=== PATIENT | female | born 1990 | race Caucasian/White ===

== ENCOUNTER 2017-06-29 16:24 | Emergency (ER) | payer OTHER ==
--- NOTE | 2017-06-29 19:08 | RAD ---
HISTORY: Mid abdominal cramping. Gestational age by last menstrual period is uncertain measured to be 11 weeks and 3 days COMPARISONS: None TECHNIQUE: Multiple transverse and longitudinal ultrasound images were obtained of the pelvis using grayscale, color flow, spectral and M-mode sonographic imaging. FINDINGS: UTERUS: The uterus is normal in shape, size, contour, and echotexture. GESTATION: There is a single live intrauterine gestation. The crown-rump length measures 4.3 cm yielding a gestational age of 11 weeks and 1 day. The mean gestational sac diameter measures 5.7 centimeters yielding a gestational age of 11 weeks and 1 day. cardiac motion is detected at a rate of 160 beats per minute. CUL-DE-SAC: There is no free fluid within the cul-de-sac. RIGHT OVARY: The right ovary measures 3.6 x 2.1 x 3.0 cm. LEFT OVARY: The left ovary measures 3.8 x 2.0 x 2.1 cm. IMPRESSION: Normal-appearing single live intrauterine gestation with a crown-rump length yielding a gestational age of 11 weeks and 1 day.
[2017-06-29 19:47] LABS: ABS Basophils 0.1 10^3/ul (0-0.2); ABS Eosinophils 0.1 10^3/ul (0-0.6); ABS Monocytes 0.7 10^3/ul (0-0.8); ABS Nucleated RBC 0 10^3/ul; Eosinophil % 0.9 % (0-6); Hematocrit 38 % (35-47); Hemoglobin 12.8 g/dl (12.0-16.0); Lymphocyte % 18.5 % (25-47); Mean Corpuscular HGB Conc 34 g/dl (31-36); Mean Corpuscular Hemoglobin 31 pg (27-31); Mean Corpuscular Volume 92 fL (80-97); Mean Platelet Volume 9 um3 (7.4-10.4); Nucleated Red Blood Cells % 0; Platelet Count 249 10^3/ul (150-450); Red Blood Count 4.13 10^6/ul (4.0-5.4); Red Cell Distribution Width 13 % (10.5-15); White Blood Count 10.9 10^3/ul (3.5-10.8)
[2017-06-29 22:24] VITALS: BP 138/71
--- NOTE | 2017-07-02 15:57 | ED ---
Elen Chao Gabriel, scribed for Ramone Griffin MD on 06/29/17 at 2215 . - HPI Summary HPI Summary: This patient is a 26 year old F presenting to [facility] with a chief complaint of ABD pain that began last night. Patient was worried she had a miscarriage and has had a miscarriage in the past. The patient rates the pain 6/10 in severity. Patient reports ABD cramping and nausea. Patient denies vaginal bleeding, v/d, and dysuria. Ab3. Patient has history of UTI s with . - History of Current Complaint Chief Complaint: EDAbdPain Stated Complaint: ABD PAIN, Time Seen by Provider: 06/29/17 21:53 Hx Obtained From: Patient Chief Complaint: Concern for Demise, Pain Timing: Constant Severity: Moderate Current Severity: Moderate Pain Intensity: 6 Location of Pain: Diffuse Character: Cramping Associated Signs and Symptoms: Positive: Negative - vaginal bleeding, v/d, and dysuria., Other: - ABD cramping and nausea - Assessment Hx Now: Yes - Allergies/Home Medications Allergies/Adverse Reactions: Allergies Allergy/AdvReac Type Severity Reaction Status Date / Time No Known Allergies Allergy Verified 11/27/14 12:47 PMH/Surg Hx/FS Hx/Imm Hx Endocrine/Hematology History: Denies: Hx Anticoagulant Therapy, Hx Diabetes Respiratory History: Denies: Hx Chronic Obstructive Pulmonary Disease (COPD), Hx Pulmonary Embolism GI History: Denies: Hx Gastroesophageal Reflux Disease Neurological History: Denies: Hx Dementia, Hx Seizures Psychiatric History: Denies: Hx Eating Disorder, Hx of Violent Episodes Against Others - Surgical History Surgery Procedure, Year, and Place: 2008, FX JAW - WIRED - Immunization History Date of Tetanus Vaccine: PT STATES UNSURE Infectious Disease History: No Infectious Disease History: Denies: Hx Clostridium Difficile, Hx Hepatitis, Hx Human Immunodeficiency Virus (HIV), Hx of Known/Suspected MRSA, Hx Shingles, Hx Tuberculosis, Hx Known/ Suspected VRE, Hx Known/Suspected VRSA, History Other Infectious Disease, Traveled Outside the [place] in Last 30 Days - Family History Known Family History: Negative: Renal Disease, Respiratory Disease, Seizure Disorder - Social History Alcohol Use: Rare Substance Use Type: Reports: None Smoking Status (MU): Never Smoked Tobacco Review of Systems Negative: Fever, Chills Negative: Erythema Negative: Sore Throat Negative: Chest Pain Negative: Shortness Of Breath, Cough Positive: Abdominal Pain, Nausea, Other - ABD cramping . Negative: Vomiting, Diarrhea Genitourinary: Negative - vaginal bleeding Negative: dysuria, hematuria Negative: Myalgia, Edema Negative: Rash Neurological: Negative - Dizziness All Other Systems Reviewed And Are Negative: Yes Physical Exam - Summary Physical Exam Summary: Constitutional: Well-developed, Well-nourished, Alert. (-) Distressed Skin: Warm, Dry HENT: Normocephalic; Atraumatic Eyes: Conjunctiva normal Neck: Musculoskeletal ROM normal neck. (-) JVD, (-) Stridor, (-) Tracheal deviation Cardio: Rhythm regular, rate normal, Heart sounds normal; Intact distal pulses; The pedal pulses are 2+ and symmetric. Radial pulses are 2+ and symmetric. (-) Murmur Pulmonary/Chest wall: Effort normal. (-) Respiratory distress, (-) Wheezes, (-) Rales Abd: Soft, (-) Tenderness, (-) Distension, (-) Guarding, (-) Rebound Musculoskeletal: (-) Edema Lymph: (-) Cervical adenopathy Neuro: Alert, Oriented x3 Psych: Mood and affect Normal - Physical Exam Triage Information Reviewed: Yes Vital Signs Reviewed: Yes Diagnostics - Vital Signs Vital Signs Temp Pulse Resp BP Pulse Ox 06/29/17 21:52 98.3 F 70 71 121/55 99 06/29/17 19:40 98 F 149/73 99 06/29/17 16:31 98.2 F 75 16 143/70 100 - Laboratory Lab Results: Lab Results 06/29/17 06/29/17 Range/Units 19:37 19:37 WBC 10.9 H (3.5-10.8) 10^3/ul RBC 4.13 (4.0-5.4) 10^6/ul Hgb 12.8 (12.0-16.0) g/dl Hct 38 (35-47) % MCV 92 (80-97) fL MCH 31 (27-31) pg MCHC 34 (31-36) g/dl RDW 13 (10.5-15) % Plt Count 249 (150-450) 10^3/ul MPV 9 (7.4-10.4) um3 Neut % (Auto) 73.1 (38-83) % Lymph % (Auto) 18.5 L (25-47) % [place] % (Auto) 6.8 (1-9) % Eos % (Auto) 0.9 (0-6) % Baso % (Auto) 0.7 (0-2) % Absolute Neuts (auto) 8.0 H (1.5-7.7) 10^3/ul Absolute Lymphs (auto) 2.0 (1.0-4.8) 10^3/ul Absolute Monos (auto) 0.7 (0-0.8) 10^3/ul Absolute Eos (auto) 0.1 (0-0.6) 10^3/ul Absolute Basos (auto) 0.1 (0-0.2) 10^3/ul Absolute Nucleated RBC 0 10^3/ul Nucleated RBC % 0 Sodium 135 (133-145) mmol/L Potassium 3.8 (3.5-5.0) mmol/L Chloride 104 (101-111) mmol/L Carbon Dioxide 26 (22-32) mmol/L Anion Gap 5 (2-11) mmol/L BUN 9 (6-24) mg/dL Creatinine 0.47 L (0.51-0.95) mg/dL Est GFR ( Amer) 204.4 (>60) Est GFR (Non-Af Amer) 159.0 (>60) BUN/Creatinine Ratio 19.1 (8-20) Glucose 90 (70-100) mg/dL Calcium 9.3 (8.6-10.3) mg/dL Total Bilirubin 0.20 (0.2-1.0) mg/dL AST 13 (13-39) U/L ALT 12 (7-52) U/L Alkaline Phosphatase 42 (34-104) U/L Total Protein 7.0 (6.4-8.9) g/dL Albumin 3.7 (3.2-5.2) g/dL Globulin 3.3 (2-4) g/dL Albumin/Globulin Ratio 1.1 (1-3) Lipase 20 (11.0-82.0) U/L Beta HCG, Quant 73037.00 mIU/mL Result Diagrams: 06/29/17 19:37 06/29/17 19:37 Lab Statement: Any lab studies that have been ordered have been reviewed, and results considered in the medical decision making process. - Additional Comments Diagnostic Additional Comments: US reveals, per radiologist, Normal-appearing single live intrauterine gestation with a crown-rump length yielding a gestational age of 11 weeks and 1 day. ED physician has reviewed this radiology report. Course/Dx - Course Assessment/Plan: This patient is a 26 year old F presenting to [facility] with a chief complaint of ABD pain that began last night. Patient was worried she had a miscarriage and has had a miscarriage in the past. The patient rates the pain 6/10 in severity. Patient reports ABD cramping and nausea. Patient denies vaginal bleeding, v/d, and dysuria. Ab3. Patient has history of UTI s with . US reveals, per radiologist, Normal-appearing single live intrauterine gestation with a crown-rump length yielding a. gestational age of 11 weeks and 1 day. Test results with no significant abnormalities. [facility] The patient is agreeable with this plan. - Diagnoses Provider Diagnoses: Abdominal pain, Discharge - Discharge Plan Condition: Stable Disposition: HOME Patient Education Materials: (ED) Referrals: No Primary Care Phys,NOPCP [facility], [Z.CONVERSION PROVIDER TYPE] - 3 Days Additional Instructions: RETURN TO THE EMERGENCY DEPARTMENT FOR CHANGING OR WORSENING SYMPTOMS.Take vitamins once a day get them OTC. Get a urinalysis this week this can be done at urgent [facility] or [facility]. The documentation as recorded by the Elen amanda Gabriel accurately reflects the service I personally performed and the decisions made by me, Ramone Griffin MD.
== END 2017-06-29 22:24 | disposition home or self-care (01) ==
LOC: ED 16:24
DX: O26.891 Other specified pregnancy related conditions, first trimester (principal); R10.9 Unspecified abdominal pain; Z3A.11 11 weeks gestation of pregnancy
CPT/HCPCS: 36415; 76801; 80053; 83690; 84702; 85025; 99282

== ENCOUNTER 2017-11-30 17:49 | Emergency (ER) | payer OTHER ==
[2017-11-30 18:36] VITALS: BP 135/89
[2017-11-30] MEDS ORDERED: Acetaminophen TAB* 325 MG PO ONE (18:59)
--- NOTE | 2017-11-30 19:07 | UC ---
Nader Chao Stephanie, scribed for Lionel Duarte MD on 11/30/17 at 1901 . General HPI - HPI Summary HPI Summary: The pt is a 27 y/o F presenting to with c/o R jaw pain that began a few days ago. Symptoms include gingival pain. She denies tooth ache or difficulty swallowing. . The pt is 33 weeks . - History of Current Complaint Chief Complaint: UCGeneralIllness Stated Complaint: JAW PAIN Time Seen by Provider: 11/30/17 18:58 Hx Obtained From: Patient Hx Last Menstrual Period: implant Onset/Duration: Gradual Onset, Lasting Days, Still Present Timing: Constant Current Severity: Moderate Pain Intensity: 7 Pain Location at: R jaw and gums - Allergy/Home Medications Allergies/Adverse Reactions: Allergies Allergy/AdvReac Type Severity Reaction Status Date / Time No Known Allergies Allergy Verified 11/27/14 12:47 Home Medications: Home Medications NK [No Home Medications Reported] 11/30/17 [History Confirmed 11/30/17] PMH/Surg Hx/FS Hx/Imm Hx Cardiovascular History: Other Other Cardiovascular History: Negative: cardiac disease Other GI/ History: Negative: Renal disease Other History Of: Negative For: Anticoagulant Therapy - Surgical History Surgical History: Yes Surgery Procedure, Year, and Place: 2008, FX JAW - WIRED - Family History Known Family History: Negative: Renal Disease, Respiratory Disease, Seizure Disorder - Social History Occupation: Employed Part-time Lives: Alone Alcohol Use: Rare Substance Use Type: None Smoking Status (MU): Never Smoked Tobacco Have You Smoked in the Last Year: No - Immunization History Most Recent Tetanus Shot: no recall Review of Systems Constitutional: Negative Skin: Negative Eyes: Negative ENT: Other - R jaw pain, gingival pain Respiratory: Negative Cardiovascular: Negative Gastrointestinal: Negative Genitourinary: Negative Motor: Negative Neurovascular: Negative Musculoskeletal: Negative Neurological: Negative Psychological: Negative All Other Systems Reviewed And Are Negative: Yes Physical Exam - Summary Physical Exam Summary: VITAL SIGNS: Reviewed. GENERAL: Patient is a well-developed and nourished FEMALE who is lying comfortable in the stretcher. Patient is not in any acute respiratory distress. HEAD AND FACE: Normocephalic, tender along the R TMJ EYES: PERRLA, EOMI x 2. EARS: Hearing grossly intact. MOUTH: Oropharynx within normal limits. NECK: Supple, trachea is midline, no adenopathy, no JVD, no carotid bruit. CHEST: Symmetric, no tenderness at palpation LUNGS: Clear to auscultation bilaterally. No wheezing or crackles. CVS: Regular rate and rhythm, S1 and S2 present, no murmurs or gallops appreciated. ABDOMEN: Soft, non-tender. Bowel sounds are normal. No abdominal abnormal pulsations. EXTREMITIES: Full ROM in all major joints, no edema, no cyanosis or clubbing. NEURO: Alert and oriented x 3. No acute neurological deficits. Speech is normal and follows commands. SKIN: Dry and warm Triage Information Reviewed: Yes Vital Signs: Initial Vital Signs Temp 98.2 F 11/30/17 18:31 Pulse 63 11/30/17 18:31 Resp 20 11/30/17 18:31 BP 135/89 11/30/17 18:31 Pulse Ox 100 11/30/17 18:31 Vital Signs Reviewed: Yes Course/Dx - Course Course Of Treatment: 27-year-old female with right-sided jaw pain. The patient is 33 weeks . She denies any dental pain, denies any complaints denies any difficulty swallowing. In the physical exam is seems that the patient has a TMJ. The patient is unable to take NSAIDs because of the . The patient was recommended to use Tylenol for the pain and follow-up with dentist. The patient understands and agrees. - Differential Dx - Multi-Symptom Provider Diagnoses: TMJ pain Discharge - Sign-Out/Discharge Documenting (check all that apply): Discharge/Admit/Transfer - Discharge - Discharge Plan Condition: Stable Disposition: HOME Patient Education Materials: Temporomandibular Disorder (ED) Referrals: No Primary Care Phys,NOPCP [Primary Care Provider] - - Billing Disposition and Condition Condition: STABLE Disposition: Home The documentation as recorded by the Nader amanda Stephanie accurately reflects the service I personally performed and the decisions made by , Lionel Duarte MD.
== END 2017-11-30 19:00 | disposition home or self-care (01) ==
LOC: UCEAST 17:49
DX: O26.893 Other specified pregnancy related conditions, third trimester (principal); M26.621 Arthralgia of right temporomandibular joint; Z3A.49 Greater than 42 weeks gestation of pregnancy
CPT/HCPCS: 99202; A9270-GY; G0463

== ENCOUNTER 2018-01-14 05:51 | Inpatient (IN) | payer OTHER ==
[~2018-01-14 05:51] MED LIST: Buffered Lidocaine 0.9% SYRIN* 5 ML/SYR SYRINGE INTRADERM ONE
[2018-01-14] MEDS ORDERED: Sodium Citrate/Citric Acid* 15 ML UDC PO ONE (06:00)
[2018-01-14] MEDS ORDERED: ceFOXitin 2 GM IVPREMIX* 2 GM/50 ML BAG ONE (07:07)
[2018-01-14] MEDS ORDERED: ceFOXitin 2 GM IVPREMIX* 2 GM/50 ML BAG IVPB ONE (07:10)
--- NOTE | 2018-01-14 07:17 | HP ---
General Information - Reason for Visit Patient at 39 2/7 weeks EGA with a prior section, maternal obesity and polyhydramnios scheduled to undergo a repeat Section at term. - General Information Maternal Age: 27 Grav: 2 Para: 1 SAB: 0 IEA: 0 Estimated Due Date: 01/18/18 Determined By: LMP Gestational Age in Weeks/Days: 39 2/7 Maternal Blood Type and Rh: A Positive - Results this Serology/RPR Result: Non-Reactive Rubella Result: Immune HBsAg Result: Negative HIV Result: Negative GBS Culture Result: Negative Past Medical History Delivery History: Hx C/Section, See Records Pertinent Past Medical History: See Records Pertinent Past Surgical History: See Records - Section 2009 Pertinent Family History: See Records - HTN, DM, Stroke and Breast Cancer Review of Systems Constitutional: Comfortable CV Complaint: No Respiratory: Shortness of Breath: No Gastrointestinal: No Nausea/Vomiting, Normal Bowel Movement Genitourinary: No Dysuria, No Bleeding, No Leaking Fluid Musculoskeletal: No Complaint, No Epigastric Pain Neurological: No Headache, No Visual Changes Movement: Normal Exam Allergies/Adverse Reactions: Allergies No Known Allergies Allergy (Verified 01/13/18 14:44) Temp 97.6 BP 134/85 P 80 RR 20 Pox 99% - Measurements Height: 5 ft 1.5 in Weight: 257 lb Weight in lbs: 257.065266 Body Mass Index (BMI): 47.7 Pre- Weight: 226 lb Weight Gained This : 31 lbs and 0 ozs - Exam Breast: Breast Exam Deferred CVA: No CVA Tenderness Extremities: No Edema Heart: Normal Rhythm/Heart Sounds HEENT: No Significant Findings Lungs: Clear Bilaterally Rectal: Rectal Exam Deferred Reflexes: DTR 2+ Thyroid: No Thyromegaly - Abdominal Exam Abdomen Exam: Non-Tender, Fundal Height Consistent with Dates - Ultrasound/Biophysical Profile Ultrasound Status: Not Done Biophysical Profile: Normal Reactive NST Targeted Exam Findings See L&D Outpatient Visit Provider Note for Findings: N/A Cervical Exam: Closed Presenting Part: Vertex Membrane Status: Intact Bleeding/Discharge: None EFM Findings - External Monitor Findings Baseline Heart Rate: 140 External Monitor Findings: Accelerations Present Contractions: None Assessment/Plan - Assessment at Term Prior section, Maternal obesity and polyhydramnios. - Plan Plan: IV Hydration, Antibiotic Prophylaxis, C/S Delivery - Date/Time of Admission Date of Admission: 01/14/18 Time of Admission: 07:00
[2018-01-14] MEDS ORDERED: Morphine PF AMP (0.5MG/ML)* 5 MG/10 ML AMP ONE (07:54)
[2018-01-14] MEDS ORDERED: Lidocaine 2% PF * 5 ML VIAL ONE ×2 (07:56→08:45)
[2018-01-14] MEDS ORDERED: Bupivacaine 0.5% SDV PF* 30ML VIAL ONE (07:56)
[2018-01-14] MEDS ORDERED: Bupivacaine-MPF SPINAL* 7.5 MG/ML - 2ML AMP ONE (07:56)
[2018-01-14] MEDS ORDERED: fentaNYL* 50 MCG/ML 2 ML VIAL (100 MCG VIAL) ONE (08:16)
[2018-01-14] MEDS ORDERED: Famotidine IV* 10 MG/ML 2 ML (20 mg) ONE (08:45)
[2018-01-14] MEDS ORDERED: OXYTOCIN* 10 UNITS/ML 1 ML VIAL ONE (08:45)
[2018-01-14] MEDS ORDERED: Ketorolac INJ* 30 MG/ML 1 ML VIAL ONE (08:45)
[2018-01-14] MEDS ORDERED: Ondansetron INJ* 2 MG/ML VIAL ONE (08:45)
[2018-01-14] MEDS ORDERED: Dibucaine 1% 28.35 GM TUBE PR PRN (09:42)
[2018-01-14] MEDS ORDERED: oxyCODONE/Acetamin 5/325 MG* TAB PO PRN (09:42)
[2018-01-14] MEDS ORDERED: Witch Hazel PAD* JAR TOPICAL PRN (09:42)
[2018-01-14] MEDS ORDERED: Acetaminophen TAB* 325 MG PO PRN (09:42)
[2018-01-14] MEDS ORDERED: Zolpidem TAB* 5 MG PO PRN (09:42)
[2018-01-14] MEDS ORDERED: Glycerin ADULT SUPP PR PRN (09:42)
[2018-01-14] MEDS ORDERED: Naloxone* 0.4 MG/ML 1 ML VIAL IV PRN ×2 (09:50→09:51)
[2018-01-14] MEDS ORDERED: fentaNYL* 50 MCG/ML 2 ML VIAL (100 MCG VIAL) IV PRN (09:50)
[2018-01-14] MEDS ORDERED: diPHENhydraMINE IV* 50 MG/ML 1 ml VIAL (BENADRYL) IV PRN (09:51)
[2018-01-14] MEDS ORDERED: Ondansetron INJ* 2 MG/ML VIAL IV PRN (09:51)
[2018-01-14] MEDS ORDERED: Scopolamine 1.5 mg* PATCH TRANSDERM PRN (09:51)
[2018-01-14] MEDS ORDERED: DiMENhydriNATE IV* 50 MG/ML VIAL IV PUSH PRN (09:51)
[2018-01-14] MEDS ORDERED: PROCHLORPERAZINE INJ 5 MG/ML 2 ML VIAL IV PRN (09:51)
[2018-01-14] MEDS ORDERED: Nalbuphine* 10 MG/ML 1 ML VIAL IV PRN (09:51)
[2018-01-14] MEDS ORDERED: HYDROcodone/ACETAMIN 5-325 MG* 1 TAB PO PRN (09:51)
[2018-01-14] MEDS ORDERED: diPHENhydraMINE IV* 50 MG/ML 1 ml VIAL (BENADRYL) ONE (11:10)
[2018-01-14] MEDS: Docusate CAP* 100 MG PO SCH ×2 (13:08→19:26)
[2018-01-14] MEDS: Simethicone TAB* 80 MG TAB.CHEW PO SCH ×2 (13:08→19:26)
[2018-01-14] MEDS: Acetaminophen TAB* 325 MG PO SCH ×4 (13:08→19:26)
[2018-01-14] MEDS: Ketorolac INJ* 30 MG/ML 1 ML VIAL IV PRN ×2 (15:39→22:23)
[2018-01-15] MEDS: Ketorolac INJ* 30 MG/ML 1 ML VIAL IV PRN (04:34)
[2018-01-15 06:39] LABS: ABS Basophils 0 10^3/ul (0-0.2); ABS Eosinophils 0.1 10^3/ul (0-0.6); ABS Lymphocytes 1.2 10^3/ul (1.0-4.8); ABS Monocytes 0.5 10^3/ul (0-0.8); ABS Neutrophils 7.2 10^3/ul (1.5-7.7); ABS Nucleated RBC 0 10^3/ul; Eosinophil % 0.7 % (0-6); Hematocrit 31 % (35-47); Hemoglobin 10.2 g/dl (12.0-16.0); Lymphocyte % 12.8 % (25-47); Mean Corpuscular HGB Conc 34 g/dl (31-36); Mean Corpuscular Hemoglobin 30 pg (27-31); Mean Corpuscular Volume 89 fL (80-97); Mean Platelet Volume 9.4 um3 (7.4-10.4); Nucleated Red Blood Cells % 0; Platelet Count 175 10^3/ul (150-450); Red Blood Count 3.44 10^6/ul (4.00-5.40); Red Cell Distribution Width 14 % (10.5-15)
[2018-01-15] MEDS: Simethicone TAB* 80 MG TAB.CHEW PO SCH ×4 (08:54→21:30)
[2018-01-15] MEDS: Docusate CAP* 100 MG PO SCH ×3 (08:54→21:30)
[2018-01-15] MEDS: oxyCODONE/Acetamin 5/325 MG* TAB PO PRN ×4 (08:54→21:30)
[2018-01-15] MEDS ORDERED: Ferrous Gluconate TAB* 324 MG TAB PO SCH (09:00)
[2018-01-15] MEDS: Ibuprofen TAB* 600 MG PO PRN (17:14)
[2018-01-16] MEDS: oxyCODONE/Acetamin 5/325 MG* TAB PO PRN ×2 (01:22→12:08)
[2018-01-16] MEDS: Ibuprofen TAB* 600 MG PO PRN ×2 (01:22→10:09)
[2018-01-16] MEDS: Simethicone TAB* 80 MG TAB.CHEW PO SCH (10:09)
[2018-01-16] MEDS: Docusate CAP* 100 MG PO SCH (10:09)
[2018-01-16 10:46] VITALS: BP 141/62
[2018-01-17] MEDS ORDERED: Scopolamine PATCH Remove* 1 NOTE MISC PATCH OFF PRN (09:54)
--- NOTE | 2018-01-22 01:11 | OP ---
OPERATIVE REPORT: DATE OF OPERATION: 01/14/18 DATE OF : 88 SURGEON: Sabino Servin MD DIRECTOR NON PROFIT: Dr. Rodriguez. ANESTHESIA: Spinal. PRE-OP DIAGNOSIS: at 39 weeks, prior section, internal obesity, and polyhydramnio s. POST-OP DIAGNOSIS: at 39 weeks, prior section, internal obesity, and polyhydramni os. OPERATIVE PROCEDURE: Repeat low transverse section. ESTIMATED BLOOD LOSS: 600 cc. SPECIMENS SENT TO PATHOLOGY: Cord blood. FLUIDS: She received 3 L of IV crystalloid fluid. URINE OUTPUT: Clear. FINDINGS: Delivery of a female infant weighing 7 pounds 12 ounces with Apgars of 8 and 8. The uteru s, adnexa, bowel, and bladder were all within normal limits. The placenta was grossly intact with a 3-vessel cord noted and there were no complications. DESCRIPTION OF PROCEDURE: The patient was taken to the operating room where she was identified. She was placed on the operating room table where a spinal anesthetic was obtained without difficulty. S he was then placed in the supine position with a leftward tilt, prepped and draped in a normal steril e fashion. A Pfannenstiel skin incision was made with a knife and carried through to underlying laye r of fascia. The fascia was then nicked in the midline and extended laterally with curved De La Rosa sciss ors. The fascia was then extended laterally with De La Rosa scissors. It was then grasped superiorly and inferiorly with Jacinda clamps, dissected off sharply from the rectus muscle. The rectus muscle was s eparated in the midline bluntly. The peritoneum was identified, grasped with pickups, entered sharpl y with Metzenbaum scissors and then extended superiorly and inferiorly. Bladder blade was then insert ed into the patient's abdomen and bladder flap was then created using Metzenbaum scissors over which the bladder blade was then reinserted. A low transverse uterine incision was made with a knife, exte nded laterally with bandage scissors. The amniotic sac was ruptured. The infant's head was then gra sped and delivered atraumatically. The cord was clamped and cut and the was handed off to the awaiting commutator v ring assembler. Cord bloods were obtained. The placenta was then removed manually. The uter us was then exteriorized, cleared of all clot and debris using moist laparotomy sponges. The uterine incision was then closed using 0 Polysorb suture in a running locked fashion with a second imbricati ng layer of 0 Polysorb suture. At this point, the uterus was returned to the patient's abdomen. The gutters were then cleared off all clots and debris using moist laparotomy sponges. The uterine inci lilian was noted to be hemostatic. All the instruments and sponges were removed from the patient's abdo men. The peritoneum was then closed using 3-0 Polysorb suture in a running fashion. The fascia was closed using 0-Polysorb suture in a running fashion. Florencio's fascia was closed using interrupted 3- 0 Polysorb stitches. The skin was closed with 4-0 Monocryl subcuticular stitch. The patient tolerat ed the procedure well. Sponge, lap, and needle counts were correct x2. She was then transferred to recovery room area in stable condition. [id number]/[facility] #: [id number]
== END 2018-01-16 12:37 | disposition home or self-care (01) | DRG 540 ==
LOC: MCHOB 05:51
PROVIDERS: ADMIT Obstetrics & Gynecology; ATTEND Obstetrics & Gynecology
PROC: 10D00Z1 Extraction of Products of Conception, Low, Open Approach (ICD-10-PCS; principal; 2018-01-14 08:45)
DX: O34.211 Maternal care for low transverse scar from previous cesarean delivery (principal); Z68.42 Body mass index [BMI] 45.0-49.9, adult; O40.3XX0 Polyhydramnios, third trimester, not applicable or unspecified; O99.214 Obesity complicating childbirth; E66.9 Obesity, unspecified; Z3A.39 39 weeks gestation of pregnancy; Z37.0 Single live birth
CPT/HCPCS: 36415; 85025; A9270-GY; J0694; J1200; J1885; J2405; J2590; J3010